=== PATIENT | male | born 1965 | race Hispanic/Latino ===

== ENCOUNTER 2021-04-21 10:38 | Emergency (ER) | payer SELFPAY ==
[2021-04-21] MEDS ORDERED: Dexamethasone 10 MG/ML VIAL ONE (11:23)
== END 2021-04-21 11:35 | disposition home or self-care (01) ==
LOC: CSHERS 10:38
DX: J02.9 Acute pharyngitis, unspecified (principal)
CPT/HCPCS: 87081; 87430; 96372; 99283; J1100